=== PATIENT | female | born 1990 | race Caucasian/White ===

== ENCOUNTER 2018-08-10 15:03 | Emergency (ER) | payer BC ==
[~2018-08-10] VITALS: Ht 170.2 cm; Wt 54.4 kg
[~2018-08-10 15:03] MED LIST: ATIVAN0.5 MG PO; CELEXA20 MG PO; FLAGYL500 MG PO; FLEXERIL PO; IBUPROFEN 800800 M1 PO; LOESTRIN1 EAC1 PO; MOTION RELIEF25 MG PO; PENICILLIN V P500 MG PO; PROAIR HFA8.5 GM; VALIUM5 MG PO
[2018-08-10 15:16] LABS: URINE BLOOD NEGATIVE (Negative); URINE CLARITY CLEAR; URINE COLOR YELLOW; URINE GLUCOSE-RANDOM TRACE (Negative); URINE LEUKOCYTES-REFLEX NEGATIVE (Negative); URINE PROTEIN TRACE (Negative)
[2018-08-10 15:19] LABS: ICTOTEST (BILI CONFIRMATORY) Negative (Negative); URINE BILIRUBIN 1+ (Negative); URINE KETONES 3+ (Negative); URINE NITRITE-REFLEX POSITIVE (Negative)
[2018-08-10 15:26] LABS: MUCUS 4-6 Moderate strn/LPF (None Seen); SQUAMOUS >10 Many /LPF (0-3)
[2018-08-10 15:27] LABS: CRYSTALS None Seen /LPF (None Seen); URINE RBC 0-2 Rare /HPF (0-2); URINE WBC-REFLEX 6-15 Few /HPF (0-5)
[2018-08-10 15:28] LABS: CASTS None Seen /LPF (None Seen)
[2018-08-10 16:18] LABS: ABSOLUTE BASOPHILS 0.1 thou/uL (0.0-0.2); ABSOLUTE EOSINOPHILS 0.2 thou/uL (0.0-0.7); ABSOLUTE LYMPHOCYTES 1.1 thou/uL (0.8-5.3); ABSOLUTE MONOCYTES 0.6 thou/uL (0.0-1.2); ABSOLUTE NEUTROPHILS 6.9 thou/uL (1.6-8.1); EOSINOPHILS 2.7 %; HEMATOCRIT 41.7 % (37.0-47.0); HEMOGLOBIN 14.4 gm/dL (12.0-15.0); LYMPHOCYTES 12.6 %; MCH 31.3 pg (26.0-34.0); MCHC 34.5 g/dL (28.0-37.0); MCV 90.9 fL (80.0-100.0); MONOCYTES 6.5 %; MPV 8.4 fl. (7.2-11.1); NUCLEATED RBCS 0 /100WBC; PLATELET COUNT* 205 thou/uL (150-400); POLYS 77.2 %; RBC 4.59 mil/uL (4.20-5.00); RDW-CV 12.8 % (10.5-14.5); WBC 8.9 thou/uL (4.0-11.0)
[2018-08-10 16:25] LABS: INFLUENZA A ANTIGEN None Detected (None Detect); INFLUENZA B ANTIGEN None Detected (None Detect)
[2018-08-10 16:30] LABS: ALBUMIN 3.9 g/dL (3.4-5.0); CALCIUM 9.3 mg/dL (8.5-10.1); CREATININE 0.7 mg/dL (0.6-1.3); TOTAL BILIRUBIN 0.4 mg/dL (<0.1-1.0); TOTAL PROTEIN 7.4 g/dL (6.4-8.2)
[2018-08-10] MEDS ORDERED: LEVAQUIN 500 M500 M2 PO (16:42)
[2018-08-10] MEDS ORDERED: NABUMETONE 750750 M1 PO (16:42)
[2018-08-10 17:39] VITALS: BP 131/93
== END 2018-08-10 17:39 | disposition home or self-care (01) ==
LOC: M.ERS 15:03
PROVIDERS: Nurse Practitioner Family
DX: J32.1 Chronic frontal sinusitis (principal); N39.0 Urinary tract infection, site not specified; F17.200 Nicotine dependence, unspecified, uncomplicated; R42 Dizziness and giddiness

== ENCOUNTER 2019-08-14 23:00 | Emergency (ER) | payer BC ==
[~2019-08-14] VITALS: Ht 170.2 cm; Wt 52.2 kg
[~2019-08-14 23:00] MED LIST changes: +LEVAQUIN 500 M500 M2 PO; +NABUMETONE 750750 M1 PO
[2019-08-14 23:14] VITALS: BP 115/47
[2019-08-14] MEDS ORDERED: KEFLEX500 M2 PO (23:37)
== END 2019-08-14 23:49 | disposition home or self-care (01) ==
LOC: M.ERS 23:00
DX: L03.116 Cellulitis of left lower limb (principal); F17.210 Nicotine dependence, cigarettes, uncomplicated

== ENCOUNTER 2021-02-14 21:08 | Emergency (ER) | payer OTHER ==
[~2021-02-14] VITALS: Ht 170.2 cm; Wt 59.0 kg
[~2021-02-14 21:08] MED LIST changes: +KEFLEX500 M2 PO
[2021-02-14] MEDS ORDERED: PENICILLIN V P500 MG PO (21:27)
[2021-02-14] MEDS ORDERED: NORCO5 PO (21:31)
[2021-02-14 21:39] VITALS: BP 128/72
== END 2021-02-14 21:40 | disposition home or self-care (01) ==
LOC: M.ERS 21:08
DX: K03.81 Cracked tooth (principal); F17.210 Nicotine dependence, cigarettes, uncomplicated; Z90.89 Acquired absence of other organs